=== PATIENT | male | born 1980 | race African-American/Black ===

== ENCOUNTER 2020-06-09 08:19 | Emergency (ER) | payer MEDICAID ==
[~2020-06-09] VITALS: Ht 180.3 cm; Wt 95.5 kg
[2020-06-09] MEDS ORDERED: ARIP5TAB8 PO (08:23)
[2020-06-09] MEDS ORDERED: PROZ10 PO (08:23)
[2020-06-09 10:21] VITALS: BP 121/78
== END 2020-06-09 11:44 | disposition home or self-care (01) ==
LOC: EMS 08:28
DX: S62.636A Displaced fracture of distal phalanx of right little finger, initial encounter for closed fracture (principal); F32.9 Major depressive disorder, single episode, unspecified; F20.9 Schizophrenia, unspecified; W22.8XXA Striking against or struck by other objects, initial encounter; Y93.89 Activity, other specified; Y92.89 Other specified places as the place of occurrence of the external cause; Y99.8 Other external cause status

== ENCOUNTER 2020-07-20 10:51 | Emergency (ER) | payer MEDICAID ==
[~2020-07-20] VITALS: Ht 177.8 cm; Wt 100.0 kg
[~2020-07-20 10:51] MED LIST: ARIP5TAB8 PO; PROZ10 PO
[2020-07-20] MEDS ORDERED: TRAZ-252 PO (11:08)
[2020-07-20] MEDS ORDERED: PRAZ1 PO (11:08)
[2020-07-20] MEDS ORDERED: KETOROLAC TROMETHAMINE 10 MG TABLET PO ONE (12:00)
[2020-07-20 13:50] VITALS: BP 113/67
== END 2020-07-20 14:35 | disposition home or self-care (01) ==
LOC: EMS 10:56
DX: S63.502A Unspecified sprain of left wrist, initial encounter (principal); F31.9 Bipolar disorder, unspecified; F20.9 Schizophrenia, unspecified; F17.210 Nicotine dependence, cigarettes, uncomplicated; X58.XXXA Exposure to other specified factors, initial encounter; Y93.89 Activity, other specified; Y92.89 Other specified places as the place of occurrence of the external cause; Y99.8 Other external cause status